=== PATIENT | female | born 1990 | race Caucasian/White ===

== ENCOUNTER 2022-11-27 13:49 | Inpatient (IN) | payer BC ==
[2022-11-27 14:15] VITALS: BMI 39.5
[2022-11-27] MEDS ORDERED: hydrALAZINE 20 MG/ML VIAL ONE (14:27)
[2022-11-27] MEDS ORDERED: Magnesium Sulfate 20 gm/500 ml 20 GM/500 ML BAG ONE (14:31)
[2022-11-27] MEDS ORDERED: CEFAZOLIN 2 GM VIAL ONE (14:31)
[2022-11-27] MEDS ORDERED: Ondansetron PF 4 MG/2 ML Vial IVP PRN ×4 (14:36→15:37)
[2022-11-27] MEDS ORDERED: hydrALAZINE 20 MG/ML VIAL SLOW IVP PRN ×2 (14:36→15:37)
[2022-11-27] MEDS ORDERED: Promethazine HCl 25 MG/ML VIAL IM PRN ×2 (14:36→15:17)
[2022-11-27] MEDS: Lactated Ringer's 1,000 ML IV SCH ×2 (14:40→23:45)
[2022-11-27] MEDS ORDERED: Labetalol HCl 100 MG/20 ML VIAL SLOW IVP PRN ×2 (14:41)
[2022-11-27] MEDS ORDERED: Lorazepam 2 MG/ML VIAL SLOW IVP PRN (14:41)
[2022-11-27] MEDS ORDERED: Calcium Gluc 4.6 MEQ/10 ML (100 MG/ML) SLOW IVP PRN (14:41)
[2022-11-27] MEDS ORDERED: Famotidine/PF 20 mg/2ml Vial SLOW IVP PRN (14:42)
[2022-11-27] MEDS ORDERED: Bicitra 30 ML UDCUP PO PRN (14:42)
[2022-11-27] MEDS ORDERED: Azithromycin 500 MG in Sodium Chloride 0.9% 250 ML 250 ML IVPB SCH (14:45)
[2022-11-27] MEDS ORDERED: Magnesium Sulfate 20 gm/500 ml 20 GM/500 ML BAG IVPB SCH (14:45)
[2022-11-27] MEDS ORDERED: Oxytocin 30 units/NS 500 ML 500 ML IV SCH ×2 (14:45→15:45)
[2022-11-27] MEDS ORDERED: CEFAZOLIN 2 GM in Sodium Chloride 0.9% 100 ML IVPB SCH (15:00)
[2022-11-27] MEDS: Labetalol HCl 100 MG/20 ML VIAL SLOW IVP PRN (15:00)
[2022-11-27] MEDS ORDERED: Morphine PF 10 MG/10 ML VIAL ONE (15:04)
[2022-11-27] MEDS ORDERED: Oxytocin 10 UNITS/ML VIAL ONE ×2 (15:06→16:03)
[2022-11-27] MEDS ORDERED: Ketorolac Tromethamine 30 MG/ML VIAL ONE (15:06)
[2022-11-27] MEDS ORDERED: Metoclopramide HCl 10 MG/2 ML VIAL ONE (15:06)
[2022-11-27] MEDS ORDERED: Dexamethasone 4 mg/ml Vial ONE (15:06)
[2022-11-27] MEDS ORDERED: Ondansetron PF 4 MG/2 ML Vial ONE (15:06)
[2022-11-27 15:14] LABS: #Monocytes 0.6 10x3/uL (0.0-1.1); #Neutrophils 5.1 10x3/uL (1.5-8.4); %Basophils 0.3 % (0.0-2.0); %Eosinophils 0.4 % (0.0-6.0); %Lymphocytes 34.9 % (18.0-47.0); %Monocytes 6.5 % (0.0-10.0); %Neutrophils 57.5 % (40.0-75.0); Hematocrit 40.3 % (34.9-44.5); Hemoglobin 13.3 g/dL (12.0-15.5); Mean Corpuscular Hemoglobin 28.2 pg (27.0-33.0); Mean Corpuscular Volume 85.6 fl (81.6-98.3); Mean Platelet Volume 12.2 fl (7.4-10.4); Platelet Count 265 10x3/uL (150-450); RBC Distribution Width 13.2 % (11.5-14.5); Red Blood Cell (RBC) Count 4.71 10x6/uL (3.90-5.03); White Blood Cell (WBC) Count 8.9 10x3/uL (3.5-10.5)
[2022-11-27] MEDS ORDERED: fentaNYL 50 mcg/mL 1 mL Vial SLOW IVP PRN (15:17)
[2022-11-27] MEDS ORDERED: Moisturizing Cream (Eucerin) 113 GM JAR TOP PRN (15:17)
[2022-11-27] MEDS ORDERED: Promethazine HCl 25 MG SUPP PR PRN (15:17)
[2022-11-27] MEDS ORDERED: Naloxone HCl 0.4 mg/ml Vial IV PRN (15:17)
[2022-11-27] MEDS ORDERED: Meperidine HCl/PF 25 MG/ML VIAL SLOW IVP PRN (15:17)
[2022-11-27] MEDS ORDERED: diphenhydrAMINE 50 MG/ML VIAL IVP PRN (15:17)
[2022-11-27] MEDS ORDERED: Naloxone HCl 0.4 mg/ml Vial IVP PRN ×2 (15:17)
[2022-11-27 15:29] LABS: ALT (SGPT) 15 U/L (8-55); AST (SGOT) 28 U/L (5-34); Albumin 3.8 g/dL (3.5-5.0); Alkaline Phosphatase 267 U/L (40-110); Anion Gap 17 mmol/L (10-20); BUN (Urea Nitrogen) 8 mg/dL (7.0-18.7); Bilirubin, Total 0.2 mg/dL (0.2-1.2); Calc. Creatinine Clearance 183 mL/min (70-130); Calcium 9.5 mg/dL (7.8-10.44); Carbon Dioxide 19 mmol/L (22-29); Chloride 107 mmol/L (98-107); Estimated GFR 97; Globulin 3.3 g/dL (2.4-3.5); Glucose 75 mg/dL (70-105); Potassium 4.3 mmol/L (3.5-5.1); Protein, Total 7.1 g/dL (6.0-8.3); Sodium 139 mmol/L (136-145)
[2022-11-27] MEDS ORDERED: Communication Order-Pharmacy FS SCH (15:30)
[2022-11-27] MEDS ORDERED: Bisacodyl 10 MG SUPP PR PRN (15:37)
[2022-11-27] MEDS ORDERED: Lanolin Ointment 7 GM TUBE TOP PRN (15:37)
[2022-11-27] MEDS ORDERED: Simethicone Chewable 80 MG TAB PO PRN (15:37)
[2022-11-27] MEDS ORDERED: diphenhydrAMINE 25 MG CAP PO PRN (15:37)
[2022-11-27] MEDS ORDERED: Boostrix 0.5 ML (Tdap) VIAL (>/=7 yrs of age) IM ONE (15:37)
[2022-11-27 15:47] LABS: HIV (1/2) Antibody/Antigen Non-Reactive (NonReactive); HIV 1/2 INDEX 0.04 S/CO (<1.00)
[2022-11-27 15:49] LABS: Syphilis Antibody Nonreactive (Nonreactive); Syphilis Antibody Index 0.05 S/CO (<1.00 Non-Reactive)
[2022-11-27 15:50] LABS: HBSAg Index 0.12 S/CO (0-0.99); Hep B Surf Ag - L&D Non-Reactive S/CO (NonReactive)
[2022-11-27] MEDS ORDERED: ePHEDrine Sulfate 50 MG/10 ML VIAL ONE (15:52)
[2022-11-27] MEDS ORDERED: Hepatitis B Vaccine 10 MCG/0.5 ML SYR ONE (15:54)
[2022-11-27] MEDS ORDERED: Phytonadione Neonatal 1 MG/0.5 ML AMP ONE (15:54)
[2022-11-27] MEDS ORDERED: Erythromycin Base 0.5% Oint 1 GM TUBE ONE (15:54)
[2022-11-27] MEDS: Ferrous Sulfate 325 MG TAB PO SCH (20:23)
[2022-11-27] MEDS ORDERED: Docusate 100 MG CAP PO SCH (21:00)
[2022-11-27] MEDS ORDERED: Ketorolac Tromethamine 30 MG/ML VIAL IVP PRN (22:00)
[2022-11-27] MEDS: Magnesium Sulfate 20 gm/500 ml 20 GM/500 ML BAG IVPB SCH (23:21)
[2022-11-28] MEDS ORDERED: HYDROcodone/Acetaminophen 5/325 mg Tablet PO PRN ×4 (03:00→13:58)
[2022-11-28 05:42] LABS: Hematocrit 32.1 % (34.9-44.5); Hemoglobin 10.7 g/dL (12.0-15.5); Mean Corpuscular HGB CONC 33.3 g/dL (32.0-36.0); Mean Corpuscular Hemoglobin 28.2 pg (27.0-33.0); Mean Corpuscular Volume 84.5 fl (81.6-98.3); Mean Platelet Volume 11.3 fl (7.4-10.4); Platelet Count 220 10x3/uL (150-450); RBC Distribution Width 13.1 % (11.5-14.5); White Blood Cell (WBC) Count 15.5 10x3/uL (3.5-10.5)
[2022-11-28] MEDS: Lactated Ringer's 1,000 ML IV SCH (06:37)
[2022-11-28] MEDS: Labetalol HCl 100 MG/20 ML VIAL SLOW IVP PRN (06:54)
[2022-11-28] MEDS: Magnesium Sulfate 20 gm/500 ml 20 GM/500 ML BAG IVPB SCH (08:36)
[2022-11-28] MEDS: NIFEdipine XL 30 MG ER.TAB PO SCH (08:43)
[2022-11-28] MEDS ORDERED: Prenatal Vitamin 1 TAB PO SCH ×2 (09:00→14:15)
[2022-11-28] MEDS ORDERED: Boostrix 0.5 ML (Tdap) VIAL (>/=7 yrs of age) IM ONE (13:58)
[2022-11-28] MEDS ORDERED: hydrALAZINE 20 MG/ML VIAL SLOW IVP PRN (13:58)
[2022-11-28] MEDS ORDERED: Bisacodyl 10 MG SUPP PR PRN (13:58)
[2022-11-28] MEDS ORDERED: Ondansetron PF 4 MG/2 ML Vial IVP PRN (13:58)
[2022-11-28] MEDS ORDERED: Simethicone Chewable 80 MG TAB PO PRN (13:58)
[2022-11-28] MEDS: Prenatal Vitamin 1 TAB PO SCH (14:06)
[2022-11-28] MEDS: Ferrous Sulfate 325 MG TAB PO SCH (14:06)
[2022-11-28] MEDS: Ibuprofen 800 MG TAB PO SCH ×2 (14:06→21:01)
[2022-11-28] MEDS ORDERED: Docusate 100 MG CAP PO SCH (14:15)
[2022-11-28] MEDS: Docusate 100 MG CAP PO SCH (20:21)
[2022-11-29] MEDS: Ibuprofen 800 MG TAB PO SCH (05:41)
[2022-11-29] MEDS ORDERED: Ibuprofen 800 MG TAB PO SCH (06:00)
[2022-11-29] MEDS: NIFEdipine XL 30 MG ER.TAB PO SCH (09:04)
[2022-11-29] MEDS: Prenatal Vitamin 1 TAB PO SCH (09:04)
[2022-11-29] MEDS: Docusate 100 MG CAP PO SCH (09:04)
[2022-11-29 11:27] VITALS: BP 137/95; TEMP 98.3
== END 2022-11-29 12:40 | disposition home or self-care (01) | DRG 788 ==
LOC: CSHLD/OP 13:49 → CSHLD 14:54 → UNDODISIN 11-28 12:49 → CSHANTE 11-28 14:48
PROVIDERS: ADMIT Obstetrics & Gynecology; ATTEND Obstetrics & Gynecology
PROC: 10D00Z1 Extraction of Products of Conception, Low, Open Approach (ICD-10-PCS; principal; 2022-11-27)
PROC: 3E033XZ Introduction of Vasopressor into Peripheral Vein, Percutaneous Approach (ICD-10-PCS; 2022-11-27)
PROC: 3E033VJ Introduction of Other Hormone into Peripheral Vein, Percutaneous Approach (ICD-10-PCS; 2022-11-27)
DX: O14.14 Severe pre-eclampsia complicating childbirth (principal); Z3A.39 39 weeks gestation of pregnancy; O13.4 Gestational [pregnancy-induced] hypertension without significant proteinuria, complicating childbirth; Z37.0 Single live birth; O32.1XX0 Maternal care for breech presentation, not applicable or unspecified; O99.824 Streptococcus B carrier state complicating childbirth
CPT/HCPCS: 36415; 51702; 80053; 84550; 85027; 86780; 86850; 86900; 86901; 87340; 87389; 99285; J0360; J1100; J1885; J2274; J2405; J2590; J2765; J3475; J7120